=== PATIENT | male | born 1960 | race Caucasian/White ===

== ENCOUNTER 2024-04-09 12:29 | Emergency (ER) | payer MEDICARE, MEDICAID ==
[~2024-04-09] VITALS: Ht 175.3 cm; Wt 77.1 kg
[2024-04-09 12:47] VITALS: BP 151/87; RESP 18; TEMP 97.9; O2SAT 97
[2024-04-09 12:49] VITALS: PULSE 102
[2024-04-09 14:48] LABS: BASOPHILS % 0.4 % (0.0-2.0); EOSINOPHILS % 0.5 % (0.0-5.0); HEMATOCRIT. 45.8 % (42.0-52.0); HEMOGLOBIN. 15.2 g/dL (14.0-18.0); LYMPHOCYTES % 15.4 % (20.0-50.0); MEAN CORPUSCULAR HEMOGLOBIN 30.6 pg (28.0-32.0); MEAN CORPUSCULAR HGB CONC 33.2 g/dL (31.0-37.0); MEAN CORPUSCULAR VOLUME 92.1 fL (80.0-94.0); MEAN PLATELET VOLUME 8.2 fl (7.4-10.4); MONOCYTES % 7.6 % (2.0-8.0); NEUTROPHILS % 76.1 % (40.0-76.0); PLATELET 194 x1000/uL (130-400); RED BLOOD CELL COUNT 4.98 mill/uL (4.7-6.1); RED CELL DISTRIBUTION WIDTH 14.1 % (11.6-14.6); WHITE BLOOD COUNT 5.6 x1000/uL (4.5-11.0)
[2024-04-09 14:50] LABS: CHLORIDE 106 mEq/L (98-107); POTASSIUM 3.6 mEq/L (3.5-5.1); SODIUM 140 mEq/L (136-145)
[2024-04-09 14:51] LABS: CARBON DIOXIDE 24 mEq/L (21-32)
[2024-04-09 14:52] LABS: CALCIUM 9.8 mg/dL (8.7-10.4)
[2024-04-09 14:57] LABS: GLUCOSE 110 mg/dL (70-105); UREA NITROGEN BLOOD 9 mg/dL (9-23)
== END 2024-04-09 17:05 | disposition home or self-care (01) ==
LOC: ER 12:29
DX: R55 Syncope and collapse (principal); I10 Essential (primary) hypertension; Z86.59 Personal history of other mental and behavioral disorders
CPT/HCPCS: 36415; 80048; 82962; 85025; 93005; 99284